=== PATIENT | female | born 1975 | race Caucasian/White ===

== ENCOUNTER → 2023-05-31 | Outpatient (CLI) | payer OTHER ==
--- NOTE | 2023-06-01 14:55 | MM ---
Reason for Exam: Screening (asymptomatic). Patient History: Menarche at age 10. First Full-Term at age 16. Perimenopausal. Patient has history of breast feeding. Currently using Hormonal Contraceptives, beginning at age 21 for 26 years. Risk Values: Nayeli 5 year model risk: 0.7%. NCI Lifetime model risk: 6.6%. Prior Study Comparison: No prior studies available for comparison. Tissue Density: The breast tissue is heterogeneously dense. This may lower the sensitivity of mammography. Findings: Analyzed By CAD. Asymmetries bilaterally. On the right laterally 13 mm 10.0 cm from the nipple, medially 12 mm and 8.0 cm from the nipple. Both posterior depth. Left breast asymmetry CC view anterior depth 22 mm from the nipple measuring 9 mm. Overall Assessment: Incomplete: need additional imaging evaluation, BI-RAD 0 Management: Diagnostic Mammogram of both breasts. [facility] will attempt to contact patient to return for supplemental views and ultrasound if indicated. Patient should continue monthly self-breast exams. A clinical breast exam by your physician is recommended on an annual basis. This exam should not preclude additional follow-up of suspicious palpable abnormalities. Note on Nayeli scores and lifetime risk: 1. A Nayeli score greater than 3% is considered moderate risk. If this is the case, consider specialist referral to assess eligibility for a risk reducing agent. 2. If overall lifetime risk for the development of breast cancer is 20% or higher, the patient may qualify for future screening with alternating mammogram and breast MRI. Electronically signed and approved by: Jan Rincon DO
== END | disposition home or self-care (01) ==
LOC: RADMAMWWP 09:58
PROVIDERS: ATTEND Family Medicine
DX: Z12.31 Encounter for screening mammogram for malignant neoplasm of breast (principal)
CPT/HCPCS: 77067

== ENCOUNTER → 2023-06-09 | Outpatient (CLI) | payer OTHER ==
--- NOTE | 2023-06-09 16:28 | MM ---
Reason for Exam: Additional evaluation requested from abnormal screening. Last screening mammogram was performed less than 1 month ago. Patient History: Menarche at age 10. First Full-Term at age 16. Perimenopausal. Patient has history of breast feeding. Currently using Hormonal Contraceptives, beginning at age 21 for 26 years. Risk Values: Nayeli 5 year model risk: 0.7%. NCI Lifetime model risk: 6.6%. Prior Study Comparison: 05/31/2023 Bilateral MG screening mammo w CAD, [facility]. Tissue Density: The breast tissue is heterogeneously dense. This may lower the sensitivity of mammography. Findings: Analyzed By CAD. Under compression and mediolateral views, the densities could not be reproduced. Short-term follow-up can be performed. No suspicious groups of microcalcifications, spiculated or lobular masses, architectural distortion or other secondary signs of malignancy are mammographically apparent. Overall Assessment: Probably benign, BI-RAD 3 Management: Diagnostic Mammogram of both breasts in 6 months. A negative mammogram report should not preclude additional follow up of suspicious palpable abnormalities. Patient should continue monthly self breast exam. A clinical breast exam by your physician is recommended on an annual basis and results should be correlated with mammographic findings. Electronically signed and approved by: Gomez Dye D.O. Radiologis
== END | disposition home or self-care (01) ==
LOC: RADMAMWWP 09:51
PROVIDERS: ATTEND Family Medicine
DX: R92.333 Mammographic heterogeneous density, bilateral breasts (principal)
CPT/HCPCS: 77062; 77066